=== PATIENT | female | born 1990 | race Caucasian/White ===

== ENCOUNTER 2016-12-19 15:02 | Emergency (ER) | payer OTHER ==
--- NOTE | 2016-12-19 15:54 | ED.PDOC ---
History of Present Illness - General Chief Complaint: Skin/Abrasion/Tear Stated Complaint: rash x 2 weeks Time Seen by Provider: 12/19/16 15:51 Source: patient Exam Limitations: no limitations - History of Present Illness Initial Comments: Madai Stein 26 y/o female stated skin rash started on her chest last week then gradually spread into her back which had been itching.Denies ill contact, no outdoor camping,no fever,no diarrhea.No new soaps or medications. Timing/Duration: week - 2 weeks Severity: moderate Location: torso Improving Factors: nothing Worsening Factors: nothing Associated Symptoms: itching, rash Allergies/Adverse Reactions: Allergies NO KNOWN ALLERGY Allergy (Verified 07/27/14 05:12) Home Medications: Ambulatory Orders Ciprofloxacin [Cipro] 500 mg PO BID #20 tab 01/04/15 guaiFENesin W/CODEINE LIQ [Robitussin AC] 5 - 10 ml PO QID PRN #120 ml 01/04/15 Benzonatate Perles [Tessalon Perles] 100 mg PO TID #10 cap 04/17/15 Cetirizine HCl [ZyrTEC] 10 mg PO DAILY #7 tab 04/17/15 Terbinafine HCl [Lamisil] 250 mg PO DAILY #14 tab 12/19/16 hydrOXYzine HCl [Atarax] 25 mg PO Q6HRS PRN #30 tab 12/19/16 predniSONE 20 mg PO DAILY #14 tab 12/19/16 Review of Systems - Review of Systems Constitutional: States: no symptoms reported EENTM: States: no symptoms reported Respiratory: States: no symptoms reported Cardiology: States: no symptoms reported Gastrointestinal/Abdominal: States: no symptoms reported Skin: States: see HPI Past Medical History (General) - Patient Medical History Hx Diabetes: No Hx Renal Disease: No - Vaccination History Hx Tetanus, Diphtheria Vaccination: Yes Hx Influenza Vaccination: No - Social History Hx Tobacco Use: Yes Hx Alcohol Use: Yes Hx Substance Use: No - Female History Patient is a Female of Child Bearing Age (10 -59 yrs old): Yes Hx Last Menstrual Period: 11/25/14 - iud-Mirena Patient : No Family Medical History - Family History Father Name: Sherwin Age (years): 45 Living Status: Still Living Hx Family Hypertension: Yes Age of Onset (years of age): 30 Hx Family Diabetes: Yes Age of Onset (years of age): 30 Mother Name: Darcy Age (years): 45 Living Status: Still Living Hx Family Cancer: Yes - skin, currently doing chemotherapy cream Age of Onset (years of age): 45 Physical Exam - Physical Exam General Appearance: Alert, Comfortable, No apparent distress Eyes, Ears, Nose, Throat Exam: PERRL/EOMI, normal ENT inspection, pharynx normal Neck: non-tender, supple Cardiovascular/Chest: normal peripheral pulses, regular rate, rhythm, no murmur Respiratory: lungs clear, normal breath sounds, no respiratory distress Gastrointestinal/Abdominal: non tender, soft, no organomegaly Back Exam: normal inspection, no CVA tenderness Extremity: no pedal edema, no calf tenderness Neurologic: alert, normal mood/affect, oriented x 3 Skin Exam: warm/dry, normal color Skin Problem Location: torso Skin Character: erythema, macules, rash, other - circular Lymphatic: no adenopathy Departure - Departure Clinical Impression: Pityriasis rosea Time of Disposition: 16:10 Disposition: Discharge to Home or Self Care Condition: Good Departure Forms: ED Discharge - Pt. Copy, Patient Portal Self Enrollment Instructions: DI for Rash Prescriptions: hydrOXYzine HCl [Atarax] 25 mg PO Q6HRS PRN #30 tab PRN Reason: Allergies predniSONE 20 mg PO DAILY #14 tab Terbinafine HCl [Lamisil] 250 mg PO DAILY #14 tab Home Medications: Ambulatory Orders Ciprofloxacin [Cipro] 500 mg PO BID #20 tab 01/04/15 guaiFENesin W/CODEINE LIQ [Robitussin AC] 5 - 10 ml PO QID PRN #120 ml 01/04/15 Benzonatate Perles [Tessalon Perles] 100 mg PO TID #10 cap 04/17/15 Cetirizine HCl [ZyrTEC] 10 mg PO DAILY #7 tab 04/17/15 Terbinafine HCl [Lamisil] 250 mg PO DAILY #14 tab 12/19/16 hydrOXYzine HCl [Atarax] 25 mg PO Q6HRS PRN #30 tab 12/19/16 predniSONE 20 mg PO DAILY #14 tab 12/19/16 Additional Instructions: Follow up with primary md in one week patient to call for appointment
[2016-12-19 17:00] VITALS: BP 126/76; TEMP 98; O2SAT 97
== END 2016-12-19 16:31 | disposition home or self-care (01) ==
LOC: ER 15:02
DX: L42 Pityriasis rosea (principal); Z79.899 Other long term (current) drug therapy; Z87.891 Personal history of nicotine dependence

== ENCOUNTER 2017-04-18 14:25 | Emergency (ER) | payer OTHER ==
[2017-04-18 14:40] VITALS: BP 137/78; TEMP 99
[2017-04-18 14:51] VITALS: O2SAT 99
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
--- NOTE | 2017-04-18 15:12 | RAD ---
EXAM DESCRIPTION: Ankle,Left 3 Views CLINICAL HISTORY: 27 years, Female, pain COMPARISON: None. TECHNIQUE: AP/lateral/oblique of the left ankle FINDINGS: There is no bone, joint, or soft tissue abnormality. IMPRESSION: 1. Normal Electronically signed by: Eamon Montoya MD 04/18/2017 3:11 PM [facility]
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
[2017-04-18] MEDS ORDERED: IBUPROFEN 200 MG TAB PO ONE (15:16)
== END 2017-04-18 15:35 | disposition home or self-care (01) ==
LOC: ER 14:25
DX: S99.922A Unspecified injury of left foot, initial encounter (principal); Z87.891 Personal history of nicotine dependence; X58.XXXA Exposure to other specified factors, initial encounter; Y92.9 Unspecified place or not applicable

== ENCOUNTER 2017-12-19 16:38 | Emergency (ER) | payer OTHER ==
[2017-12-19 16:46] VITALS: TEMP 97.8
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
[2017-12-19] MEDS ORDERED: ORPHENADRINE CITRATE 30 MG/ML AMP IM ONE (18:35)
[2017-12-19] MEDS ORDERED: HYDROcodone 7.5MG/APAP 325MG 1 EA TAB PO ONE (18:35)
[2017-12-19] MEDS ORDERED: KETOROLAC TROMETHAMINE INJ 30 MG/ML VIAL IM ONE (18:35)
[2017-12-19 19:12] VITALS: BP 109/69; O2SAT 94
== END 2017-12-19 19:10 | disposition home or self-care (01) ==
LOC: ER 16:38
DX: M54.2 Cervicalgia (principal); R68.84 Jaw pain; R07.9 Chest pain, unspecified; M25.511 Pain in right shoulder; R51 Headache; V49.59XA Passenger injured in collision with other motor vehicles in traffic accident, initial encounter; Y92.410 Unspecified street and highway as the place of occurrence of the external cause; Z87.891 Personal history of nicotine dependence
CPT/HCPCS: 70110; 71045; 71100; 72040; 73030; J1885; J2360